=== PATIENT | male | born 2005 | race Caucasian/White ===

== ENCOUNTER 2024-02-29 23:48 | Emergency (ER) | payer OTHER, SELFPAY ==
[2024-02-29 23:49] VITALS: BP 130/77; PULSE 81; RESP 16; TEMP 36.8; O2SAT 97; BMI 23.9
[2024-03-01 01:06] LABS: Absolute Lymphocyte Count 0.73 X10^3/uL (0.83-4.51); Absolute Neutrophil Count 11.9 X10^3/uL (2.0-7.7); Basophil# 0.07 X10^3/uL; Basophil% 0.5 % (0-1); Hematocrit 42.3 % (40-54); Hemoglobin 13.4 g/dL (13.0-16.5); Lymphocyte # 0.73 X10^3/ul (0.83-4.51); Lymphocyte % 5.3 % (19-41); Mean Corp Hgb Conc 31.7 g/dL (32-36); Mean Corpuscular Volume 79.1 fL (80-94); Mean Platelet Vol. 10.2 fl (6.2-12.0); Monocyte# 1.14 X10^3/uL; Monocyte% 8.2 % (0-10); NRBC Flagged by Analyzer 0 % (0-5); Neutrophil # 11.89 X10^3/uL (2.7-7.7); Neutrophil % 85.7 % (47-70); Platelet Count 383 K/mm3 (150-450); RBC Distribution Width CV 14.1 % (11.6-14.6); RBC Distribution Width SD 40.1 fl (35.1-43.9); Red Blood Count 5.35 M/mm3 (4.6-6.2); White Blood Count 13.9 K/mm3 (4.4-11.0)
[2024-03-01 01:26] LABS: AST(SGOT) 50 U/L (15-37); Alanine Aminotransfer ALT/SGPT 28 U/L (16-61); Albumin, Serum 4.1 g/dL (3.2-5.0); Alkaline Phosphatase 77 U/L (45-117); Anion Gap 11 (5-15); BUN 18 mg/dL (7-18); BUN/Creat Ratio 13.1 RATIO (10-20); Calcium,Total 9.4 mg/dL (8.5-10.1); Chloride 100 mmol/L (98-107); Creatinine, Serum 1.37 mg/dL (0.70-1.30); EST Glomerular Filtration Rate 70 mL/min (>60); Est Glom Filt Rate - Afr Amer 85 mL/min (>60); Glucose 113 mg/dL (74-106); Potassium 3.6 mmol/L (3.5-5.1); Protein, Total 8.1 g/dL (6.4-8.2); Sodium Level 136 mmol/L (136-145)
[2024-03-01 01:49] VITALS: BP 113/64; PULSE 70; RESP 18; O2SAT 99
--- NOTE | 2024-03-01 02:07 | EDS_ITS ---
HPI HPI - GI History of Present Illness Chief Complaint: Abd Pain Informant: patient Abdominal Pain/Flank Pain Onset: Today Context: Gradual Onset Timing: Waxes and wanes Quality: Cramping Location: Epigastric, RUQ and LUQ Worsened by: - (Anxiety) Relieved by: - (Bentyl) Nausea/Vomiting/Emesis GI Symptom: Positive for Nausea and Vomiting Onset: Today Quality: Positive for Nonbilious; Negative for Blood streaks or Hematemesis Diarrhea/Melena/Hematochezia GI Symptom: Negative for Diarrhea, Melena or Hematochezia Associated Symptoms Associated Symptoms: Negative for Dysuria, Frequency or Hematuria Narrative Narrative: Patient presents with abdominal pain that began today. Patient states it has been waxing and waning. Patient describes the pain as cramping. Patient states the pain is mainly over the upper abdomen. Patient states it is worse with anxiety. Patient states he has been taking Bentyl with some relief. Patient admits to some nausea and vomiting. Patient denies any hematemesis. Patient denies any diarrhea, melena, or hematochezia. Patient denies any urinary complaints. Patient states he does have a history of IBS but states this is worse than prior flareups. [facility] Medical History (Updated 03/01/24 @ 04:[address] Luis Carlos Gómez DO) IBS (irritable bowel syndrome) Home Medications ?Medication ?Instructions ?Recorded ?Last Taken ?Type dicyclomine 10 mg capsule 10 mg PO Q6H 02/29/24 Unknown History amoxicillin 875 mg-potassium 875 mg PO Q12H #20 TABLETS 03/01/24 Unknown Rx clavulanate 125 mg tablet ondansetron 4 mg disintegrating 4 mg PO Q8H PRN PRN Nausea #10 tabs 03/01/24 Unknown Rx tablet Allergy/AdvReac Type Severity Reaction Status Date / Time No Known Allergies Allergy Verified 02/29/24 23:49 Surgical History no surgical history no surgical history Social History Smoking Status: Never smoker ROS ROS ED Constitutional Constitutional ED: Reports chills and subjective; Denies fever(s) Eyes Eyes: Denies blurry vision or change in vision ENT ENT ED: Denies rhinorrhea or sore throat Cardiovascular Cardiovascular: Denies chest pain or palpitations Respiratory/Chest Respiratory/Chest: Denies cough or dyspnea Gastrointestinal Gastrointestinal: Reports abdominal pain, nausea and vomiting; Denies diarrhea or melena Genitourinary Genitourinary ED: Denies dysuria or hematuria Musculoskeletal Musculoskeletal: Denies back pain or neck pain Integumentary Denies abscess or rash Neurologic Neurologic: Denies headache(s) or weakness Allergic/Immunologic Allergic/Immunologic ED: Denies mouth swelling or urticaria EXAM Physical Exam Const Vital Signs: 02/29/24 23:49 03/01/24 01:49 03/01/24 03:00 Temperature 98.2 F Temperature Source Temporal Pulse Rate 81 70 79 Respiratory Rate 16 18 18 Blood Pressure 130/77 H 113/64 129/81 H Blood Pressure Mean 94 80 97 Pulse Ox 97 99 99 Oxygen Delivery Method Room Air Room Air Positive well nourished and well developed General Appearance ED: well developed and NAD HEENT Reports moist mucous membranes Neck supple and no JVD Resp normal respiratory effort and clear to auscultation bilaterally Cardio regular rate and regular rhythm GI non-distended Palpation: soft and tender epigastric, LLQ, RLQ, LUQ, RUQ, periumbilical and suprapubic; Negative for guarding or rebound tenderness present Extremity General Extremety ED: Negative for edema or tenderness General Extremity: Negative for edema Neuro CN's II-XII intact bilaterally, moves all extremities and no sensory deficits noted Sensorium / Orientation: alert Motor Exam: strength 5/5 throughout Psych mental status grossly normal MDM MDM MDM Narrative Medical decision making narrative: Differential diagnosis includes gastritis, peptic ulcer disease, gastroesophageal reflux disease, pancreatitis, cholecystitis, cholelithiasis, urinary tract infection, pyelonephritis, colitis, and IBS. CBC will be obtained to assess for leukocytosis and anemia. Comprehensive metabolic profile will be obtained to assess for hepatic function, renal function, and electrolyte abnormality. Lipase will be obtained to assess for pancreatitis. Urinalysis will be obtained to assess for urinary tract infection and hematuria. CT scan of the abdomen and pelvis will be obtained to assess for bowel obstruction, perforation, pancreatitis, and pyelonephritis. Lab Data Attestation: I reviewed the patient's lab results. Lab results narrative: CBC was reviewed. There is a mild leukocytosis of 13.9. The remainder is within normal limits. Comprehensive metabolic profile was reviewed and was essentially within normal limits. Lipase was reviewed and was within normal limits. Urinalysis was reviewed. Urine ketones were 150. There is no evidence of urinary tract infection or hematuria. Labs: Laboratory Results - last 24 hr 03/01/24 03/01/24 00:55 02:22 WBC 13.9 H RBC 5.35 Hgb 13.4 Hct 42.3 MCV 79.1 L MCH 25.0 L MCHC 31.7 L RDW Std Deviation 40.1 RDW Coeff of Christian 14.1 Plt Count 383 MPV 10.2 Immature Gran % (Auto) 0.300 Neut % (Auto) 85.7 H Lymph % (Auto) 5.3 L [place] % (Auto) 8.2 Eos % (Auto) 0.0 Baso % (Auto) 0.5 Absolute Neuts (auto) 11.9 H Absolute Lymphs (auto) 0.73 L Nucleated RBC % 0 Sodium 136 Potassium 3.6 Chloride 100 Carbon Dioxide 25.0 Anion Gap 11 BUN 18 Creatinine 1.37 H Estim Creat Clear Calc 105.60 Est GFR (MDRD) Af Amer 85 Est GFR (MDRD) Non-Af 70 BUN/Creatinine Ratio 13.1 Glucose 113 H Calcium 9.4 Total Bilirubin 0.90 AST 50 H ALT 28 Alkaline Phosphatase 77 Total Protein 8.1 Albumin 4.1 Globulin 4.0 Albumin/Globulin Ratio 1.0 Lipase 19 Urine Color Yellow Urine Clarity Clear Urine pH 6.0 Ur Specific [place] 1.030 Urine Protein 30 H Urine Glucose (UA) Normal Urine Ketones 150 A* Urine Occult Blood Negative Urine Nitrite Negative Urine Bilirubin Negative Urine Urobilinogen 1 H Ur Leukocyte Esterase Negative Urine RBC 0 SEEN Urine WBC 0 SEEN Ur Squamous Epith Cells 0-5 SEEN Urine Bacteria 0 SEEN Urine Mucus 0 SEEN Radiography Diagnostic Testing: Clinical Impression(s) from Imaging Studies Abdomen/Pelvis CT 03/01/24 02:35 IMPRESSION: Prominent enteritis involving the ileum, with fluid-filled appearance and free fluid present. Wall thickening of the distal ileum extending to the terminal ileum. This is likely infectious or inflammatory. Electronically Signed: Devonte Faustin MD at 3:38 EDT , CT scan of the abdomen pelvis was obtained. There is prominent enteritis involving the ileum. This is likely infectious or inflammatory. This was inter preted by the radiologist and was also independently reviewed by myself. Treatment and Re-Evaluation :: Patient was given IV fluids and Zofran. Patient is resting comfortably on reevaluation. Patient was advised of his findings. Patient was given a dose of Augmentin here. Patient was given prescription for Augmentin and Zofran. Patient was instructed to follow-up with a primary care physician in 5 to 7 days. Patient was instructed to return if worse in any way. Patient understood and was agreeable with the plan. All questions were answered. Discharge Plan Triage Chief Complaint: Abd Pain ED Provider: Luis Carlos Gómez Dx/Rx/DC Orders Clinical Impression: Enteritis, IBS (irritable bowel syndrome) Instructions: ED Understanding Colitis, ED Irritable Bowel Syndrome Prescriptions: New ondansetron 4 mg tablet,disintegrating 4 mg PO Q8H PRN PRN (Reason: Nausea) Qty: 10 0RF amoxicillin-pot clavulanate 875-125 mg tablet 875 mg PO Q12H Qty: 20 0RF No Action dicyclomine 10 mg capsule 10 mg PO Q6H Primary Care Provider: Care Physician,No Primary Referrals: Dick Patel MD [Med Staff - Active Staff] - 5-7 Days Ruiz Marinelli DO [Med Staff - Active Staff] - 1-2 Weeks Care Physician,No Primary [Primary Care Provider] - Print Language: Macedonian Disposition Disposition: Home, Self Care
[2024-03-01 02:29] LABS: Bacteria 0 SEEN /hpf (None Seen); Mucous, Urine 0 SEEN /hpf (<or=2+); Red Blood Cells-Urine 0 SEEN /hpf (0-5); White Blood Cells 0 SEEN /hpf (0-5)
[2024-03-01 02:30] LABS: Lipase 19 U/L (13-75)
[2024-03-01 02:31] LABS: Color, Urine Yellow (Yellow); Glucose, Dipstick Normal (Normal); Leukocyte Esterase-Dipstick Negative /ul (Negative); Nitrite-Dipstick Negative (Negative); Occult Blood-Urine Negative /ul (Negative); Protein-Dipstick 30 mg/dl (Negative); Urine Bilirubin Dipstick Negative (Negative); Urine Clarity Clear (Clear); Urine Urobilinogen 1 mg/dl (Normal)
--- NOTE | 2024-03-01 02:35 | CT_ITS ---
STUDY: CT ABDOMEN AND PELVIS WITH CONTRAST REASON FOR EXAM: Male, 19 years old. Abdominal pain RADIATION DOSAGE (If Supplied By Facility): CTDIvol = ( 10.02 ) mGy, DLP = ( 729.09 ) mGycm TECHNIQUE: IV 100mL Isovue-370 was administered. Transaxial images were obtained from the dome of the diaphragm to the symphysis pubis in the portal venous phase. Multiplanar coronal and sagittal images were reformatted. Individualized Dose Optimization Techniques Were Used For This CT. COMPARISON: No relevant prior comparison study available FINDINGS: LOWER CHEST: Lung bases are clear. No cardiomegaly or pericardial effusion. LIVER: The liver is normal in size, shape, and attenuation. No focal mass. GALLBLADDER AND BILIARY TREE: The gallbladder is normally distended. No gallstones. No gallbladder wall thickening or edema. No pericholecystic fluid. No intra- or extrahepatic biliary ductal dilation. PANCREAS: No focal cystic or solid mass. SPLEEN: Normal size without focal cystic or solid mass. ADRENAL GLANDS: No nodules. KIDNEYS AND URETERS: Normal renal size and position. No hydronephrosis or nephrolithiasis. PERITONEUM: Small volume of free fluid in the pelvis. No other fluid collection. BOWEL: The stomach is unremarkable. Decompressed proximal small bowel. The distal small bowel is fluid-filled and prominent. Mild wall thickening of the distal ileum extending to the terminal ileum. No evidence of acute appendicitis. The colon is decompressed along much of its course. LYMPH NODES: No enlarged mesenteric or retroperitoneal lymph nodes. VESSELS: Aorta is non-dilated. URINARY BLADDER: Unremarkable. REPRODUCTIVE ORGANS: No pelvic masses. ABDOMINAL WALL: No discrete abdominal or pelvic wall hernia. BONES: No lytic or blastic abnormality. CT/Abdomen/Pelvis W IV Cont ONLY IMPRESSION: Prominent enteritis involving the ileum, with fluid-filled appearance and free fluid present. Wall thickening of the distal ileum extending to the terminal ileum. This is likely infectious or inflammatory. Electronically Signed: Devonte Faustin MD at 3:38 EDT ,
[2024-03-01 02:45] LABS: Ketone-Dipstick 150 mg/dl (Negative); Squamous Epithelial Cells - UA 0-5 SEEN /hpf (0-5)
[2024-03-01 03:00] VITALS: BP 129/81; PULSE 79; RESP 18; O2SAT 99
[2024-03-01 05:04] VITALS: BP 122/67; PULSE 82; RESP 18; TEMP 36.7; O2SAT 97
[2024-03-01 05:05] VITALS: RESP 18
== END 2024-03-01 05:05 | disposition home or self-care (01) ==
PROVIDERS: Emergency Provider Emergency Medicine; Visit Provider Emergency Medicine
DX: K52.9 Noninfective gastroenteritis and colitis, unspecified (principal); R10.13 Epigastric pain; R10.11 Right upper quadrant pain; R10.12 Left upper quadrant pain; Z79.899 Other long term (current) drug therapy
CPT/HCPCS: 74177; 80053; 81001; 83690; 85025; 96361; 96374; 99282; J7030; Q9967; A4216; J2405

== ENCOUNTER → 2024-04-30 | Outpatient (CLI) | payer OTHER, SELFPAY ==
--- NOTE | 2024-04-30 07:55 | RAD_ITS ---
CLINICAL HISTORY: Male, 19 years old. Crohn''s disease PROCEDURE: Small bowel series FLUOROSCOPY TIME (if supplied): 11 seconds TECHNIQUE: Small bowel series was performed utilizing oral contrast. 8 images were obtained during the study for documentation purposes. RAD/Small Bowel Series Only IMPRESSION: Fluoroscopic guided small bowel series Electronically Signed: Paras Mireles MD at 19:44 EDT ,
== END | disposition home or self-care (01) ==
LOC: RAD 07:47
PROVIDERS: Referring Provider Internal Medicine Gastroenterology; Visit Provider Internal Medicine Gastroenterology
DX: K50.90 Crohn's disease, unspecified, without complications (principal)
CPT/HCPCS: 74250

== ENCOUNTER 2025-05-26 08:55 | Emergency (ER) | payer OTHER, SELFPAY ==
[2025-05-26 08:56] VITALS: BP 133/73; PULSE 85; RESP 18; TEMP 36.6; O2SAT 100; BMI 25.4
[2025-05-26 09:09] VITALS: BP 133/73; PULSE 85; RESP 18; TEMP 36.6; O2SAT 100
[2025-05-26] MEDS: Lidocaine 1% (20 ml mdv) 20 ML Vial 10 ML INFILT (09:27)
--- NOTE | 2025-05-26 09:45 | EX.ED.DYSGE1 ---
HPI History of Present Illness Chief Complaint: Abscess Narrative Narrative: Patient is a 20-year-old male with past medical history IBS, eczema who presents to the emergency department with a chief complaint of swelling behind his right ear. Patient states that he has had this happen in the past on different areas of body and he states that they had to be drained and notes that usually pus comes out of these. He states that he has not had 1 in a significant time. He states he went to urgent care and he was placed on antibiotics he states that he went back to urgent care they gave him another course of antibiotics and he states that the pain and swelling has gotten worse and he states that he could not get into his doctor back in [place] therefore he came here for further evaluation management. Denies any fevers. [facility] Medical History IBS (irritable bowel syndrome) Home Medications Medication Instructions Recorded Last Taken Type doxycycline hyclate 100 mg capsule 100 mg PO BID 5 days #10 caps 05/26/25 Unknown Rx Allergy/AdvReac Type Severity Reaction Status Date / Time No Known Allergies Allergy Verified 05/26/25 08:57 Social History Smoking Status: Never smoker ROS ROS ED ROS Narrative Constitutional: Denies any fevers, chills Neurological: Denies any numbness,'s, weakness, tingling Musculoskeletal: Denies back pain Skin: Complains of swelling and pain behind the right ear EXAM Physical Exam Narrative Exam Narrative: General: Patient is lying in bed rest comfortably do not appear to be in acute distress Head: Atraumatic, normocephalic Eyes, ears, nose, throat: PERRL bilaterally, EOMI bilaterally, no conjunctival injection noted, right TM visualized no concern for infection Neck: Soft, supple, trachea midline Cardiovascular: Regular rate Extremities: +5/5 strength in the bilateral upper and lower extremities Neurological: Patient following commands knew that he was at [facility] year is 2024 Skin: Patient has a area of fluctuance noted behind the right ear near his hairline. Patient has no tenderness palpation of the mastoid region no proptosis of his ear Const Vital Signs: 05/26/25 08:56 05/26/25 09:09 Temperature 97.8 F 97.8 F Temperature Source Oral Oral Pulse Rate 85 85 Respiratory Rate 18 18 Blood Pressure 133/73 H 133/73 H Blood Pressure Mean 93 93 Pulse Ox 100 100 MDM MDM MDM Narrative Medical decision making narrative: Patient is a 20-year-old male who presents to the emergency department the chief complaint of swelling behind his right ear. On the differential diagnose includes Melamin to cyst, abscess. Bedside ultrasound was performed and showed large area of fluid collection noted Patient had I&D performed see procedure note for separate details Toller procedure well large amount of purulent material was expressed. Patient was given a gram of Tylenol for pain control as he drove here. He will be placed on doxycycline for 5 days and was advised follow-up with Dr. Lewis send and return with worsening symptoms or concerns. All question concerns answered is discharged home in stable condition. Procedure note Timeout protocol was performed prior to initiating procedure. The area was prepped and draped in the usual, sterile manner. The site was anesthetized with 1% percent lidocaine without epinephrine 2 cc. A linear incision along the local skin lines were made and the purulent material expressed. The abscess was explored thoroughly and sequestered pockets were opened. Bleeding was minimal. Packing none Follow-up: The patient tolerated procedure well without complications. Standard postprocedure care is explained and return precautions were given. Discharge Plan Triage Chief Complaint: Abscess ED Provider: Johnny Linn Dx/Rx/DC Orders Clinical Impression: Abscess of head, History of IBS, History of eczema Prescriptions: New doxycycline hyclate 100 mg capsule 100 mg PO BID 5 Days Qty: 10 0RF Primary Care Provider: REAGAN FERMIN Referrals: REAGAN FERMIN [Other] Activity Restrictions/Additional Instructions: Take antibiotics as prescribed. Return to worsening symptoms or any concerns. Print Language: Greenlandic Disposition Disposition: Home, Self Care
[2025-05-26 10:11] VITALS: BP 124/74; PULSE 71; RESP 16; TEMP 36.8; O2SAT 99
== END 2025-05-26 10:15 | disposition home or self-care (01) ==
PROVIDERS: Emergency Provider Emergency Medicine; Visit Provider Emergency Medicine
DX: L02.811 Cutaneous abscess of head [any part, except face] (principal)
CPT/HCPCS: 10060; 99283